=== PATIENT | male | born 1975 | race Caucasian/White ===

== ENCOUNTER 2017-02-23 06:50 | Emergency (ER) | payer OTHER ==
[2017-02-23] MEDS ORDERED: Lidocaine 1% 10 ML MDV INJECT ONE (07:32)
[2017-02-23] MEDS ORDERED: Diphtheria,Pertussis(Acell),Tetanus Vaccine 0.5 ML SDV IM ONE (07:38)
--- NOTE | 2017-02-23 07:38 | EDM.PDOC ---
ED HPI GENERAL MEDICAL PROBLEM - General Chief Complaint: Laceration Stated Complaint: FINGER LACERATION Time Seen by Provider: 02/23/17 07:32 Source of Information: Reports: Patient History Limitations: Reports: No Limitations - History of Present Illness INITIAL COMMENTS - FREE TEXT/NARRATIVE: 41-year-old male presents the ED with a work-related injury. Patient reports that he simply slipped and fell and his left third finger went into a metal grate-like tray. Initially he didn't even know that he been injured and to look down and seen a fairly large flap laceration on the dorsal aspect of his mid left left third finger. Note the patient is right hand dominant. He is unclear when his last tetanus toxoid was administered. Injury occurred about 0530 hrs. this morning in the workplace. Wound will definitely require suture repair. Onset: Today Onset Date: 02/23/17 Onset Time: 05:30 Duration: Hour(s): Location: Reports: Upper Extremity, Left (Left dorsal third finger.) Quality: Reports: Burning Improves with: Reports: None Worsens with: Reports: None Context: Reports: Other (Slipped and fell at work.) Associated Symptoms: Reports: No Other Symptoms Treatments CLINIC ASSISTANT: Reports: Other (see below) (None.) Left Middle Hand Pain Score (Numeric/FACES): 2 - Related Data Allergies Allergy/AdvReac Type Severity Reaction Status Date / Time No Known Allergies Allergy Verified 02/23/17 07:25 Home Meds: Home Meds Doxycycline [Vibramycin] 100 mg PO Q12HR #16 cap 02/23/17 [Rx] Social & Family History - Tobacco Use Smoking Status *Q: Never Smoker - Caffeine Use Caffeine Use: Reports: None - Recreational Drug Use Recreational Drug Use: No - Living Situation & Occupation Occupation: Employed ED ROS GENERAL - Review of Systems Review Of Systems: See Below Constitutional: Reports: No Symptoms HEENT: Reports: No Symptoms Respiratory: Reports: No Symptoms Cardiovascular: Reports: No Symptoms Endocrine: Reports: No Symptoms GI/Abdominal: Reports: No Symptoms : Reports: No Symptoms Musculoskeletal: Reports: No Symptoms Skin: Reports: No Symptoms Neurological: Reports: No Symptoms Psychiatric: Reports: No Symptoms Hematologic/Lymphatic: Reports: No Symptoms Immunologic: Reports: No Symptoms ED EXAM, SKIN/RASH Exam: See Below Exam Limited By: No Limitations General Appearance: Alert, WD/WN, Anxious, Mild Distress Extremities: Other (Injury is to the dorsal aspect of his left third finger. There is a large stones almost oval flap laceration that extends from the proximal distal phalanx over the entire middle phalanx and to the proximal phalanx. His proximal a 4 cm in circumference. Range of motion is intact with no evidence of extensor tendon injury. Patient is intact to the dorsal and volar aspect of his finger bilaterally. Wound will be cleansed and then sutured under local anesthetic.) Skin: Other (Patient has a large flap laceration to the dorsal aspect of his left third finger.) ED SKIN PROCEDURES - Laceration/Wound Repair Left Middle Mid-Anterior Midline Finger Lac/Wound length In cm: 5.0 Appearance: Subcutaneous Distal NVT: Neuro & Vascular Intact, No Tendon Injury Anesthetic Type: Digital Local Anesthesia - Lidocaine (Xylocaine): 1% Plain Local Anesthetic Volume: Other Skin Prep: Saline (12 mL) Exploration/Debridement/Repair: Wound Explored, Minimal Debridement Closed with: Sutures Suture Size: 4-0 # of Sutures: 20 Suture Type: Nylon, Interrupted, Simple Course - Vital Signs Last Recorded V/S: Last Vital Signs Temp 37.1 C 02/23/17 07:20 Pulse 108 H 02/23/17 07:20 Resp 18 02/23/17 07:20 BP 133/88 02/23/17 07:20 Pulse Ox 98 02/23/17 07:20 - Orders/Labs/Meds Orders: Active Orders 24 hr Category Date Time Status Vaccines to be Administered [RC] PER UNIT ROUTINE Care 02/23/17 07:38 Active Meds: Medications Discontinued Medications Generic Name Dose Route Start Last Admin Trade Name Freq PRN Reason Stop Dose Admin Diphtheria/Tetanus/Acell Pertussis 0.5 ml 02/23/17 07:38 Adacel IM 02/23/17 07:39 .ONCE ONE Lidocaine HCl 50 ml 02/23/17 07:32 Xylocaine 1% INJECT 02/23/17 07:33 ONETIME ONE - Radiology Interpretation Free Text/Narrative:: 41-year-old male reports to the ED with a work-related injury. He slipped and fell in the workplace about 0530 hrs. this morning and his finger was jammed up in a metal leg tray apparatus. This resulted in a large overweight 4 cm flap laceration to the dorsal lack suspect of his left third finger. No tendon injury or neurovascular injury are evident on initial exam. TDap will have to be updated. Wound will be cleansed and then sutured under local anesthetic. - Re-Assessments/Exams Free Text/Narrative Re-Assessment/Exam: 02/23/17 08:21 wound was cleansed after soaking in saline. He was then anesthetized with 1% lidocaine using 12 mils in total. Wound is then closed in a intermittent suture fashion 20 4-0 Ethilon sutures. Wound will be dressed with a finger cot dressing. After topical antibiotic and Telfa pad placement. Sutures will need to be removed in 10 days' time. Patient will be released back to full work duties as he has a job that he can work around his finger injury. Placed on doxycycline 100 mg twice daily for 8 days to prevent secondary wound infection. Departure - Departure Time of Disposition: 08:25 Disposition: Home, Self-Care 01 Condition: Fair Clinical Impression: Laceration of finger of left hand Qualifiers: Encounter type: initial encounter Finger: middle finger Damage to nail status: without damage Foreign body presence: with foreign body Qualified Code(s): S61.223A - Laceration with foreign body of left middle finger without damage to nail, initial encounter - Discharge Information Prescriptions: Doxycycline [Vibramycin] 100 mg PO Q12HR #16 cap Forms: ED Department Discharge Additional Instructions: Evaluation in the emergency room this morning in regards to injury in the workplace at 5:30 this morning. Slip and fall with blunt force trauma again just a metal object injured the dorsal aspect of the left third finger. The injury resulted in a overweight flap laceration measuring 4 cm over the dorsal aspect of the left third finger. No evidence of extensor tendon injury or neurovascular bundle injury. Wound was cleansed and then sutured under local anesthetic. Treatment is to leave the initial bandage on for the next 48 hours. Then the wound can be cleansed daily with soap and water. Showering is okay but the wound should not be soaked under water until the sutures are removed. Daily cleanse the wound is above and apply topical antibiotic such as bacitracin or Polysporin to the wound after cleanse. Bandages will need to be applied to protect the skin from further damage and to keep it clean. Sutures will have to be removed in 10 days' time. Last use of antibiotic doxycycline 100 mg twice daily for the next 8 days to prevent secondary wound infection. May return to work as you described you can work around your finger injury without the wound getting dirty or wet. - My Orders Last 24 Hours: My Active Orders 02/23/17 07:38 Vaccines to be Administered [RC] PER UNIT ROUTINE - Assessment/Plan Last 24 Hours: My Active Orders 02/23/17 07:38 Vaccines to be Administered [RC] PER UNIT ROUTINE
[2017-02-23 09:11] VITALS: BP 110/74
== END 2017-02-23 08:52 | disposition home or self-care (01) ==
LOC: JD.ED 06:50
DX: S61.213A Laceration without foreign body of left middle finger without damage to nail, initial encounter (principal); W31.9XXA Contact with unspecified machinery, initial encounter; Y93.89 Activity, other specified; Y99.0 Civilian activity done for income or pay
CPT/HCPCS: 12002; 90471; 90715; 99283-25